=== PATIENT | female | born 1980 | race Caucasian/White ===

== ENCOUNTER 2017-11-14 18:42 | Emergency (ER) | payer OTHER ==
[~2017-11-14] VITALS: Ht 172.7 cm; Wt 101.7 kg
[~2017-11-14 18:42] MED LIST: BACTRIM,SEPT1 TABLET PO; CIPRO500 MG PO; DEPAKOTE500 MG PO; DEPO-PROVER150 MG/ML IM; ETHOSUXIMIDE250 MG PO; FLEXERIL10 MG PO; IBUPROFEN800 MG PO; INDOCIN25 MG PO; KEFLEX250 MG PO; KEFLEX250 MG/5 M PO; KEFLEX500 MG PO; LIDODERM 5% P1 PATCH TD; MACROBID100 MG PO; MOTRIN600 MG PO; NAPROXEN500 MG PO; NITROFURANTOIN100 M3 PO; NOHOMEMEDS; NORCO 7.5/321 TABLET PO; PERCOCET 5/31 TABLET PO; PREDNISONE10 MG PO; PREDNISONE20 MG PO; PRENATAL TABLE1 EAC3 PO; PYRIDIUM200 MG PO; REGLAN10 MG PO; SEIZURE MED PO; SUDAFED 12-HOU120 MG PO; TESSALON PERLE100 MG PO; TUMS500 MG PO; VALIUM2 MG PO; VALIUM5 MG PO; ZOFRAN ODT4 MG PO; ZOFRAN4 MG PO
[2017-11-14] MEDS ORDERED: TESSALON PERLE100 MG PO (20:36)
[2017-11-14] MEDS ORDERED: MOTRIN800 MG PO (20:36)
[2017-11-14 21:37] VITALS: BP 123/91
== END 2017-11-14 21:40 | disposition home or self-care (01) ==
LOC: EME 18:42 → EXP 18:42
DX: B34.9 Viral infection, unspecified (principal)
CPT/HCPCS: 99281; 99285

== ENCOUNTER 2017-11-16 20:30 | Emergency (ER) | payer OTHER ==
[~2017-11-16] VITALS: Ht 172.7 cm; Wt 100.3 kg
[~2017-11-16 20:30] MED LIST changes: +MOTRIN800 MG PO
[2017-11-16 21:20] LABS: HEMATOCRIT 42.7 % (36.0-46.0); HEMOGLOBIN 14.4 G/DL (11.9-15.5); MCHC 33.7 G/DL (30.0-36.0); PLATELET COUNT 121 K/uL (156-360); RBC DIS.WIDTH-CV 13.4 % (11.8-14.6); RBC DIS.WIDTH-SD 46.2 % (39-53); RED BLOOD COUNT 4.64 M/uL (3.80-5.20); WHITE BLOOD COUNT 3.2 K/uL (4.1-10.2)
[2017-11-16 21:30] LABS: CHLORIDE 108 mEq/L (99-109); SODIUM 139 mEq/L (136-147)
[2017-11-16 21:32] LABS: GLUCOSE 116 mg/dL (70-99)
[2017-11-16 21:36] LABS: CREATININE 1.2 mg/dL (0.6-1.3); GFR ESTIMATE (CALCULATED) 54 mL/min/
[2017-11-16 21:37] LABS: UREA NITROGEN (BUN) 10 mg/dL (9-23)
[2017-11-16 22:07] LABS: QUANTITATIVE HCG < 4.0 MIU/ML
[2017-11-16] MEDS ORDERED: PREDNISONE10 M1 PO (23:13)
[2017-11-16] MEDS ORDERED: VENTOLIN HFA18 GM IH (23:13)
[2017-11-16] MEDS ORDERED: CHERATUSSIN AC473 ML PO (23:13)
[2017-11-16] MEDS ORDERED: ZITHROMAX Z-PA250 MG PO (23:13)
[2017-11-16 23:37] VITALS: BP 116/73
== END 2017-11-16 23:39 | disposition home or self-care (01) ==
LOC: EME 20:30
PROVIDERS: Physician Assistant
DX: J10.1 Influenza due to other identified influenza virus with other respiratory manifestations (principal); J45.909 Unspecified asthma, uncomplicated; Z97.5 Presence of (intrauterine) contraceptive device
CPT/HCPCS: 71046; 80048; 81025; 84702; 85027; 85379; 87502; 93005; 94640; 99281; 99284; J1885